=== PATIENT | female | born 1980 | race Caucasian/White ===

== ENCOUNTER 2023-09-15 12:05 | Emergency (ER) | payer BC ==
--- NOTE | 2023-09-15 13:43 | RAD REPORT ---
EXAM DESCRIPTION: Shoulder Right 2 View - 09/15/2023 1:01 pm CLINICAL HISTORY: PAIN COMPARISON: No comparisons TECHNIQUE: Internal and external rotation views of the right shoulder were obtained. FINDINGS: There is no fracture or dislocation. AC joint is normal in appearance. No acute or suspici ous findings. IMPRESSION: Negative two-view right shoulder examination.
--- NOTE | 2023-09-15 13:46 | RAD REPORT ---
EXAM DESCRIPTION: RAD - Elbow Right 3 View - 09/15/2023 1:01 pm CLINICAL HISTORY: PAIN COMPARISON: No comparisons TECHNIQUE: Right elbow, 3 views. FINDINGS: No fracture is identified. No elevated posterior fat pad to suggest an effusion. There is no dislocation or periosteal reaction noted. No foreign body or other soft tissue abnormalit y. IMPRESSION: Negative right elbow examination.
--- NOTE | 2023-09-15 14:01 | ER ---
Nurse's Notes [facility] Name: Judy Martin Age: 43 yrs Sex: Female : 1980 Arrival Date: 09/15/2023 Time: 12:05 Bed 11 Private MD: Diagnosis: Other sprain of right shoulder joint Presentation: 09/14 12:16 Chief complaint: Patient states: "I was trying to fix the shower head and I was aa5 standing on the edges of the bathtub and I ended up falling". Pt c/o pain to right shoulder. 12:16 Coronavirus screen: At this time, the client does not indicate any symptoms associated aa5 with coronavirus-19. Ebola Screen: Patient denies travel to an Ebola-affected area in the 21 days before illness onset. Initial Sepsis Screen: Does the patient meet any 2 criteria? No. Patient's initial sepsis screen is negative. Does the patient have a suspected source of infection? No. Patient's initial sepsis screen is negative. Risk Assessment: Do you want to hurt yourself or someone else? Patient reports no desire to harm self or others. Onset of symptoms was September 15, 2023. 12:16 Acuity: CONNIE 4 aa5 12:16 Method Of Arrival: Ambulatory aa5 CLIENT PROJECT COORDINATOR: 14:14 Not as6 Historical: - Allergies: 12:16 No Known Allergies; aa5 - PMHx: 12:16 None; aa5 - Immunization history:: Adult Immunizations unknown. - Infectious Disease History:: Denies. - Social history:: Smoking status: Patient denies any tobacco usage or history of. - Family history:: not pertinent. - Hospitalizations: : No recent hospitalization is reported. Screenin:19 [facility] ED Fall Risk Assessment (Adult) History of falling in the last 3 months, as6 including since admission Yes- single mechanical fall (1 pt) Confusion or Disorientation No (0 pts) Intoxicated or Sedated No (0 pts) Impaired Gait No (0 pts) Mobility Assist Device Used No (0 pt) Altered Elimination No (0 pt) Score/Fall Risk Level 0 - 2 = Low Risk Oriented to surroundings, Maintained a safe environment, Educated pt \\T\\ family on fall prevention, incl call for assistance when getting out of bed, Assessed \\T\\ reinforced patient's understanding of fall precautions. Abuse screen: Denies threats or abuse. Denies injuries from another. Nutritional screening: No deficits noted. Tuberculosis screening: No symptoms or risk factors identified. Assessment: 12:34 General: Appears in no apparent distress. Behavior is calm, cooperative. Pain: as6 Complains of pain in anterior aspect of right shoulder and posterior aspect of right shoulder. Musculoskeletal: Range of motion: limited in right shoulder. 13:30 Reassessment: Patient appears in no apparent distress at this time. Patient and/or as6 family updated on plan of care and expected duration. Pain level reassessed. Patient is alert, oriented x 3, equal unlabored respirations, skin warm/dry/pink. Vital Signs: 12:16 BP 154 / 74; Pulse 84; Resp 16 S; Temp 97.3(TE); Pulse Ox 98% on R/A; aa5 13:30 BP 107 / 76; Pulse 71; Resp 18 S; Pulse Ox 98% on R/A; as6 14:14 BP 104 / 69; Pulse 64; Resp 18; Pulse Ox 99% ; as6 ED Course: 12:07 Patient arrived in ED. mr 12:08 Deandre Suárez MD is Attending Physician. rn 12:16 Arm band placed on. aa5 12:17 Jayson Adan, HARSH is Primary Nurse. as6 12:18 Triage completed. aa5 12:20 Bed in low position. Call light in reach. Warm blanket given. as6 13:03 XRAY Shoulder RIGHT 2 view In Process Unspecified. EDMS 13:03 XRAY Elbow RIGHT 3 view In Process Unspecified. EDMS 14:15 Provided Education on: follow up. as6 14:15 No provider procedures requiring assistance completed. Patient did not have IV access as6 during this emergency room visit. Sling applied to right arm. Administered Medications: No medications were administered Medication: 12:20 VIS not applicable for this client. as6 Outcome: 14:00 Discharge ordered by . rn 14:15 Discharged to home ambulatory, as6 14:15 Condition: stable 14:15 Discharge instructions given to patient, Instructed on discharge instructions, follow up and referral plans. Demonstrated understanding of instructions, follow-up care, 14:15 Patient left the ED. as6 Signatures: Dispatcher [employer] EDMS Kerline Hu, Reg Reg mr Deandre Suárez MD MD rn Calderon, Audri, RN RN aa5 Jayson Adan RN RN as6 Corrections: (The following items were deleted from the chart) 12:17 12:17 Arm band placed on aa5 aa5
--- NOTE | 2023-09-15 14:01 | EDPHYS ---
Physician Documentation [facility] Name: Judy Martin Age: 43 yrs Sex: Female : 1980 Arrival Date: 09/15/2023 Time: 12:05 Bed 11 Private MD: ED Physician Deandre Suárez HPI: 09/14 12:53 This 43 yrs old Female presents to ER via Ambulatory with complaints of Fall Injury. rn 12:53 Details of fall: The patient fell from an upright position. Onset: The symptoms/episode rn began/occurred just prior to arrival. Associated injuries: The patient sustained Right shoulder and elbow. Severity of symptoms: At their worst the symptoms were mild, in the emergency department the symptoms are unchanged. The patient has not experienced similar symptoms in the past. Patient reports cleaning showerhead and fell, tried to brace herself with right arm and catch something, her right shoulder mainly but a little pain to the right elbow. Patient denies any bony pain but hurts to lift things.. TOOLING ENGINEER: 14:14 Not as6 Historical: - Allergies: 12:16 No Known Allergies; aa5 - PMHx: 12:16 None; aa5 - Immunization history:: Adult Immunizations unknown. - Infectious Disease History:: Denies. - Social history:: Smoking status: Patient denies any tobacco usage or history of. - Family history:: not pertinent. - Hospitalizations: : No recent hospitalization is reported. ROS: 12:53 Constitutional: Negative for fever, chills, and weight loss, Neck: Negative for injury, rn pain, and swelling, Back: Negative for injury and pain, MS/Extremity: Positive for right shoulder and elbow pain Neuro: Negative for headache, weakness, numbness, tingling, and seizure, Exam: 12:53 Constitutional: This is a well developed, well nourished patient who is awake, alert, rn and in no acute distress. Head/Face: Normocephalic, atraumatic. Neck: No midline cervical tenderness MS/ Extremity: Pulses equal, no cyanosis. Neurovascular intact. Mild painful range of motion with elevation of the right arm at the level of the shoulder. No bony tenderness or gross deformity. Full range of motion right elbow Neuro: Awake and alert, GCS 15 Vital Signs: 12:16 BP 154 / 74; Pulse 84; Resp 16 S; Temp 97.3(TE); Pulse Ox 98% on R/A; aa5 13:30 BP 107 / 76; Pulse 71; Resp 18 S; Pulse Ox 98% on R/A; as6 14:14 BP 104 / 69; Pulse 64; Resp 18; Pulse Ox 99% ; as6 MDM: 12:08 Patient medically screened. rn 13:59 Differential diagnosis: contusion, fracture, sprain, strain. Data reviewed: vital rn signs, nurses notes, radiologic studies, plain films, and as a result, I will discharge patient. Counseling: I had a detailed discussion with the patient and/or guardian regarding the historical points, exam findings, and any diagnostic results supporting the discharge/admit diagnosis, radiology results, the need for outpatient follow up, to return to the emergency department if symptoms worsen or persist or if there are any questions or concerns that arise at home. Special discussion: I discussed with the patient/guardian in detail that at this point there is no indication for admission to the hospital. It is understood, however, that if the symptoms persist or worsen the patient needs to return immediately for re-evaluation. Further emergent ED testing is not indicated at this point in time. I discussed with the patient/guardian in detail the need to arrange with the PCP or specialist further outpatient testing, MRI. 09/14 12:19 Order name: XRAY Shoulder RIGHT 2 view; Complete Time: 13:56 rn 09/14 12:20 Order name: XRAY Elbow RIGHT 3 view; Complete Time: 13:56 rn 09/14 13:59 Order name: Sling; Complete Time: 14:14 rn Administered Medications: No medications were administered Disposition Summary: 09/15/23 14:00 Discharge Ordered Notes: Location: Home rn Problem: new rn Symptoms: have improved rn Condition: Stable rn Diagnosis - Other sprain of right shoulder joint rn Followup: rn - With: Private Physician - When: As needed - Reason: Recheck today's complaints, Re-evaluation by your physician Discharge Instructions: - Discharge Summary Sheet rn - Shoulder Sprain rn - How to Use a Sling rn Forms: - Medication Reconciliation Form rn - Antibiotic furniture dipper - Prescription Opioid Use rn - Patient Portal Instructions rn - Leadership Thank You Letter rn Signatures: Dispatcher [employer] Deandre Salcedo MD MD rn Calderon, Audri, RN RN aa5 Corrections: (The following items were deleted from the chart) 12:20 12:20 Elbow Right 3 View+[email or web address] ordered. EDMS EDMS
[2023-09-15 14:36] VITALS: BP 104/69; TEMP 97.3; O2SAT 99
== END 2023-09-15 14:15 | disposition home or self-care (01) ==
LOC: ER 12:05
DX: S43.491A Other sprain of right shoulder joint, initial encounter (principal)
CPT/HCPCS: 99283